=== PATIENT | female | born 1970 | race Caucasian/White ===

== ENCOUNTER 2016-04-14 09:14 | Day surgery (SDC) | payer OTHER ==
[~2016-04-14] VITALS: Ht 167.6 cm; Wt 152.4 kg
[2016-04-14] VITALS (9 sets, daily range): BP systolic 138–145; BP diastolic 69–86; PULSE 70–76; RESP 16–24; O2SAT 94–99
[~2016-04-14 09:14] MED LIST: ALBU8.5H2 INHALATION; HYDR-4003 PO; HYDR25TA4 PO; LISI-567 PO; MOME13HF IH
[2016-04-14] MEDS ORDERED: Ketamine 10 mg/mL 20 mL Inj ONE (09:15)
--- NOTE | 2016-04-14 09:22 | PCM.HPANE ---
Patient Data Surgeon Admitting Provider: Attending Provider:Champ Law MD Primary Care Physician:Fariba Duncan MD Other Provider:[facility] Reason for Visit Right Carpal Tunnel Syndrome Ht/WT & BMI Height (Feet): 5 Height (Inches): 2 Weight (Kilograms): 152.47 Body Mass Index 61.00 Allergies Coded Allergies: aspirin (Verified Allergy, Unknown, 04/12/16) latex (Verified Allergy, Unknown, 04/12/16) Past Anesthesia History Anesthesia History: Denies:: Abnormal Airway, Difficult Intubation Diabetes History Hx Diabetes?: No Medications Hypertension Medication: Yes Home Meds Incl Beta Richard: No Reported Medications Albuterol HFA (Proair HFA)8.5 Gm Hfa.aer.ad2 Puffs INHALATION Q4H PRN For Shortness of Breath #1 INHALER 04/12/16 Hydrocodone-Acetaminophen 5-325 mg 1 Each Tablet1 Tablet PO Q6H PRN For Pain Ref 0 04/12/16 Lisinopril 20 Mg [id number] Mg PO DAILY 30 Days Ref 0 04/12/16 Hydrochlorothiazide 25 Mg [id number] Mg PO DAILY 30 Days Ref 0 04/12/16 Mometasone/Formoterol (Dulera 200 Mcg/5 Mcg Inhaler)13 Gm Hfa.aer.ad13 Gm IH BID 04/12/16 History History of ENT Problems?: No HEENT History: Denies:: Abnormal Airway Difficult Intubation Hx of Heart Problems?: Yes Cardiovascular History: Positive for:: Hypertension Denies:: AICD Heart Murmur Irregular Heartbeat Pacemaker Hx of Respiratory Problem?: Yes Respiratory History: Positive for:: Asthma Use of C-PAP Machine Use of Inhalers / NEBS Denies:: COPD Oxygen Administration Pneumonia Tuberculosis Neurological History: Denies:: Alzheimer's Disease CVA Multiple Sclerosis Parkinson's Disease Seizures Hx of GI Problems?: No Hx of Problems?: No Female Hx: Denies:: Currently Problems with Breasts? Skin History: Denies:: History Skin Disorders? Pressure Ulcers Hx Musculoskeletal Problems?: Yes Musculoskeletal History: Positive for:: Musculoskeletal Trauma (right carpal tunnel release) Denies:: Fibromyalgia Osteoarthritis Hx of Psycho/Social Problems?: No Psycho Social History: Denies:: Anxiety Hx Depression Hx Surgeries?: No (unknown) Other History: Denies:: Cancer Thyroid Disease History Blood Transfusions: Positive for:: Accept Blood Products? Denies:: Blood Transfusions Hx Diabetes: No Stop/Bang S-Snoring: Do You Snore Loudly: Yes T-Tired: feel tired, fatigued: Yes O-Obsered: Observed not breath: Yes P-Blood Pressure: treated: Yes B- Body Mass Index > 35 kg/m2: Yes A- Age over 50: Yes N- Neck Large Circumference: Yes G- Gender Male: No MARLYS Total Score: 7 MARLYS Risk Assessment: High Risk, =/>3 Yes MARLYS Category 4 OutPt Procedure: Yes Risk Assessment Category Category 1A: Patient has history of documented sleep apnea, and HAS NOT received any narcotic, sedative or anesthesia administration during this stay. Category 1B: Patient has history of documented sleep apnea, and HAS received any narcotic , sedative or anesthesia administration during this stay Category 2: Patient has SUSPECTED Obstructive Sleep Apnea, and HAS received any narcotic , sedative or anesthesia administration during this stay. Category 3: Patient has SUSPECTED Obstructive Sleep Apnea and HAS NOT received narcotic, sedative or anesthesia administration during this stay. Category 4: Outpatient in Procedural Areas with known sleep apnea or who screen positive for High Risk via the STOP/BANG questionnaire. Exam Exam General Appearance: Alert, Oriented X3, Cooperative, No Acute Distress HEENT/AIRWAY: MP 2 Lungs: Clear to Auscultation, Normal Air Movement Heart: Exam Unremarkable, Regular Rate/Rhythm, No Murmurs/Rubs/Gallops Plan Impression Patient chart reviewed, patient interviewed and anesthestic plan with risks, benefits, and alternatives discussed, and informed consent obtained. ASA Physical Status: ASA3 Severe Disease (BMI 61.5) Anesthetic Plan: MAC Bene/Risks/Altern/Consents: Yes HP Complete Prior to Induction: Yes Sheng Schneider MD Apr 14, 2016 09:22
[2016-04-14] MEDS: Lactated Ringer's 1,000 ML IV SCH ×2 (09:42→10:50)
[2016-04-14] MEDS ORDERED: Bupivacaine-MPF 0.25% 30 mL Inj INFILTRATE ONE (10:50)
[2016-04-14] MEDS ORDERED: Lactated Ringer's 1,000 ML IV SCH (11:11)
[2016-04-14] MEDS ORDERED: Lactated Ringer's 500 ML IV PRN (11:11)
[2016-04-14] MEDS ORDERED: EPHEDrine Sulfate 50 mg/mL Inj IVPUSH PRN (11:15)
[2016-04-14] MEDS ORDERED: HYDROmorphone 1 mg/mL Inj IVPUSH PRN (11:15)
[2016-04-14] MEDS ORDERED: Dexamethasone 4 mg/mL Inj IVPUSH PRN (11:15)
[2016-04-14] MEDS ORDERED: fentaNYL-PF 50 mCg/mL 2 mL Inj IVPUSH PRN (11:15)
[2016-04-14] MEDS ORDERED: Phenylephrine 10,000 mCg/mL Inj IVPUSH PRN (11:15)
[2016-04-14] MEDS ORDERED: Ondansetron 2 mg/mL 2 mL Inj IVPUSH PRN (11:15)
[2016-04-14] MEDS ORDERED: MetoCLOpramide 5 mg/mL 2 mL Inj IVPUSH PRN (11:15)
[2016-04-14] MEDS ORDERED: HYDROcodone-APAP 5-325 mg Tablet PO PRN (11:20)
--- NOTE | 2016-04-15 08:57 | PCM.ANEP1 ---
Post Anesthesia Phase 1 PACU Phase 1 Assessment Anesthetic Administered: MAC Level of Alertness: Awake, talking FARIAS's with Equal Strength: Yes Pain: No Nausea or Vomiting: No Oxygen Delivery: Nasal Cannula Lungs: Clear to Auscultation, Normal Air Movement Dermatome Level: Full Sensation Sheng Schneider MD Apr 15, 2016 08:56
--- NOTE | 2016-04-15 08:57 | PCM.ANEP2 ---
Post Anesthesia Evaluation ASA/CMS Post Anesthesia VS in Patient's Normal Range?: Yes Resp Stable; Airway Patent?: Yes CV Function & Hydration Stable: Yes Mental Status Recovered?: Yes Pain control Satisfactory?: Yes N/V Control Satisfactory?: Yes Sheng Schneider MD Apr 15, 2016 08:57
--- NOTE | 2016-04-16 15:53 | OP ---
[address] [address] OPERATIVE REPORT PATIENT: RAUL MCINTOSH : 1970 MR#: [id number] ADMIT: 04/14/2016 JOB ID: [id number] DATE OF SURGERY: 04/14/2016 PREOPERATIVE DIAGNOSIS(ES): Right carpal tunnel syndrome. POSTOPERATIVE DIAGNOSIS(ES): Right carpal tunnel syndrome. PROCEDURE: Right open carpal tunnel release. SURGEON: Champ Law MD SAUSAGE STUFFER: None. ANESTHESIA: MAC with local. COMPLICATIONS: None apparent. SPECIMEN: None. INDICATIONS FOR PROCEDURE: This is a 46-year-old female patient with physical examination findings, history, and electrodiagnostic studies consistent with right carpal tunnel syndrome. At this point, a carpal tunnel release is indicated. PROCEDURES AND FINDINGS: The patient was identified in the preoperative area. Surgical site was marked. The patient was then taken back to the operating room and placed supine on the operating table. Appropriate time-outs were taken. MAC was induced smoothly. The patient was then prepped and draped in the usual sterile manner. Local anesthesia was then infiltrated to the surgical site consisting of 1% lidocaine and 0.25% Marcaine. The patient's right upper extremity was then exsanguinated and an arm tourniquet inflated to 250 mmHg. An open carpal tunnel incision was then made starting at the junction of the [place] cardinal line with the ring finger ray extending 2 cm proximally. This was done with a 15 blade. I then deepened the incision down to the underlying superficial palmar fascia with blunt and sharp dissection with a pair of tenotomy scissors. The superficial palmar fascia was split using a #15 blade. I then bluntly deepened the incision down to the underlying transverse carpal ligament with Ragnell retractors. The distal edge of the ligament was then opened in a layer by layer manner using a #15 blade until the carpal tunnel was entered. The proximal portion of the ligament was then isolated using the aeroplane pilot from the [place] set. Once this had been accomplished, the transverse carpal ligament was opened completely using the [place]. The roof of the tunnel was then palpated with a [place] elevator and was found to be widely open. The carpal tunnel was examined and the nerve was found to be intact. The distal residual fascial bands were then lysed bluntly with a pair of tenotomy scissors. Tourniquet was released. Hemostasis was obtained with electrocautery. The incision was then reapproximated using several 4-0 nylon horizontal mattress sutures. The patient tolerated the procedure well. Needle count, sponge count, and instrument counts were correct at the end of the procedure. The patient was placed into a small volar splint and transported to recovery in stable condition.
[2016-05-28] MEDS ORDERED: PHEN-499 PO (15:26)
[2016-05-28] MEDS ORDERED: HYDR-4003 PO (15:26)
== END 2016-04-14 23:59 | disposition home or self-care (01) ==
LOC: SAS 09:14
PROVIDERS: ATTEND Plastic Surgery
DX: G56.01 Carpal tunnel syndrome, right upper limb (principal); J45.909 Unspecified asthma, uncomplicated; I10 Essential (primary) hypertension; E66.9 Obesity, unspecified; Z68.44 Body mass index [BMI] 60.0-69.9, adult; Z79.51 Long term (current) use of inhaled steroids
CPT/HCPCS: 64721; J7120

== ENCOUNTER → 2016-06-02 | Day surgery (SDC) | payer OTHER ==
[~2016-06-02] VITALS: Ht 167.6 cm; Wt 152.3 kg
[~2016-06-02] MED LIST changes: +AMOX875T2 PO; +Atropine 0.4 mg/mL Inj IVPUSH PRN; +Dexamethasone 4 mg/mL Inj IVPUSH PRN; +EPHEDrine Sulfate 50 mg/mL Inj IVPUSH PRN; +HYDROmorphone 1 mg/mL Inj IVPUSH PRN; +Labetalol 5 mg/mL 4 mL Inj IV PRN; +Lactated Ringer's 1,000 ML IV ONE; +Lactated Ringer's 1,000 ML IV SCH; +Lactated Ringer's 500 ML IV PRN; +MetoCLOpramide 5 mg/mL 2 mL Inj IVPUSH PRN; +Ondansetron 2 mg/mL 2 mL Inj IVPUSH PRN; +PHEN-499 PO; +Phenylephrine 10,000 mCg/mL Inj IVPUSH PRN; +Propofol 10,000 mCg/mL 20 mL Inj ONE; +fentaNYL-PF 50 mCg/mL 2 mL Inj IVPUSH PRN; +hydrALAZINE 20 mg/mL Inj IVPUSH PRN
--- NOTE | 2016-06-02 07:34 | PCM.HPANE ---
Patient Data Surgeon Admitting Provider: Attending Provider:Champ Law MD Primary Care Physician:Fariba Duncan MD Other Provider: Reason for Visit Left Carpal Tunnel Syndrome Ht/WT & BMI Height (Feet): 5 Height (Inches): 2 Weight (Kilograms): 151.953 Body Mass Index 61.00 Allergies Coded Allergies: aspirin (Verified Allergy, Severe, RASH, 05/28/16) latex (Verified Allergy, Unknown, UNKNOWN, 05/28/16) Past Anesthesia History Anesthesia History: Denies:: Abnormal Airway, Anesthesia Reactions, Difficult Intubation, Malignant Hyperthermia Diabetes History Hx Diabetes?: No MRSA MRSA: No Medications Hypertension Medication: Yes (HCTZ,LISINOPRIL) Reported Medications Hydrocodone-Acetaminophen 5-325 mg 1 Each Tablet1 Tablet PO Q6H PRN For Pain Ref 0 05/28/16 Phentermine 30 Mg [id number] Mg PO DAILY 05/28/16 Albuterol HFA (Proair HFA)8.5 Gm Hfa.aer.ad2 Puffs INHALATION Q4H PRN For Shortness of Breath #1 INHALER 04/12/16 Lisinopril 20 Mg [id number] Mg PO DAILY 30 Days Ref 0 04/12/16 Hydrochlorothiazide 25 Mg [id number] Mg PO DAILY 30 Days Ref 0 04/12/16 Mometasone/Formoterol (Dulera 200 Mcg/5 Mcg Inhaler)13 Gm Hfa.aer.ad13 Gm IH BID 04/12/16 History History of ENT Problems?: No HEENT History: Denies:: Abnormal Airway Difficult Intubation Hx of Heart Problems?: Yes Cardiovascular History: Positive for:: Hypertension Denies:: AICD Heart Murmur Irregular Heartbeat Pacemaker Hx of Respiratory Problem?: Yes Respiratory History: Positive for:: Asthma Dyspnea (CONTRERAS) Use of C-PAP Machine (MARLYS+ W/ CPAP) Use of Inhalers / NEBS Denies:: COPD Oxygen Administration Pneumonia Tuberculosis Hx Neurologic Problems?: No Neurological History: Denies:: Alzheimer's Disease CVA Multiple Sclerosis Parkinson's Disease Seizures Hx of GI Problems?: No Hx of Problems?: No Female Hx: Denies:: Currently Problems with Breasts? Skin History: Denies:: History Skin Disorders? Pressure Ulcers Hx Musculoskeletal Problems?: Yes Musculoskeletal History: Positive for:: Musculoskeletal Trauma (right carpal tunnel release) Hx of Psycho/Social Problems?: No Psycho Social History: Denies:: Anxiety Hx Depression Hx Surgeries?: Yes (RT CTR) Hx Any Other Health Problems?: Yes Other History: Denies:: Cancer Endocrine Disease Hospitalization Thyroid Disease History Blood Transfusions: Denies:: Blood Transfusions Hx Diabetes: No Smoking Status: Unknown if Ever Smoker Stop/Bang S-Snoring: Do You Snore Loudly: Yes T-Tired: feel tired, fatigued: Yes O-Obsered: Observed not breath: Yes P-Blood Pressure: treated: Yes B- Body Mass Index > 35 kg/m2: Yes A- Age over 50: No N- Neck Large Circumference: Yes G- Gender Male: No MARLYS Total Score: 6 MARLYS Risk Assessment: High Risk, =/>3 Yes MARLYS Category 4 OutPt Procedure: Yes Risk Assessment Category Category 1A: Patient has history of documented sleep apnea, and HAS NOT received any narcotic, sedative or anesthesia administration during this stay. Category 1B: Patient has history of documented sleep apnea, and HAS received any narcotic , sedative or anesthesia administration during this stay Category 2: Patient has SUSPECTED Obstructive Sleep Apnea, and HAS received any narcotic , sedative or anesthesia administration during this stay. Category 3: Patient has SUSPECTED Obstructive Sleep Apnea and HAS NOT received narcotic, sedative or anesthesia administration during this stay. Category 4: Outpatient in Procedural Areas with known sleep apnea or who screen positive for High Risk via the STOP/BANG questionnaire. Exam Exam General Appearance: Alert, Oriented X3, Cooperative, No Acute Distress HEENT/AIRWAY: MP 2 Lungs: Clear to Auscultation, Normal Air Movement Heart: Exam Unremarkable, Regular Rate/Rhythm, No Murmurs/Rubs/Gallops Plan Impression Patient chart reviewed, patient interviewed and anesthestic plan with risks, benefits, and alternatives discussed, and informed consent obtained. NPO Status: 04/13/16 ASA Physical Status: ASA2 Mod Systemic Disease Anesthetic Plan: MAC Bene/Risks/Altern/Consents: Yes HP Complete Prior to Induction: Yes Mele Galvez MD Jun 02, 2016 07:34
[2016-06-02 08:17] VITALS: BP 132/72; PULSE 68; RESP 16; O2SAT 96
[2016-06-02 10:45] VITALS: BP 142/70; PULSE 69; RESP 16; O2SAT 97
--- NOTE | 2016-06-02 10:55 | PCM.ANEP1 ---
Post Anesthesia Phase 1 PACU Phase 1 Assessment Vital Signs Vital Signs Date Time Temp Pulse Resp B/P Pulse Ox O2 Delivery O2 Flow Rate FiO2 06/02/16 10:45 36.2 69 16 142/70 97 Room Air 06/02/16 08:17 36.4 68 16 132/72 96 Room Air Level of Alertness: Awake, talking FARIAS's with Equal Strength: Yes Pain: No Nausea or Vomiting: No Oxygen Delivery: Simple Mask Lungs: Clear to Auscultation, Normal Air Movement Mele Galvez MD Jun 02, 2016 10:55
--- NOTE | 2016-06-02 13:26 | PCM.ANEP2 ---
Post Anesthesia Evaluation ASA/CMS Post Anesthesia VS in Patient's Normal Range?: Yes Resp Stable; Airway Patent?: Yes CV Function & Hydration Stable: Yes Mental Status Recovered?: Yes Pain control Satisfactory?: Yes N/V Control Satisfactory?: Yes Mele Galvez MD Jun 02, 2016 13:26
--- NOTE | 2016-06-04 13:05 | OP ---
[address] [address] OPERATIVE REPORT PATIENT: RAUL MCINTOSH : 1970 MR#: [id number] ADMIT: 06/02/2016 JOB ID: [id number] DATE OF SURGERY: 06/02/2016 PREOPERATIVE DIAGNOSIS(ES): Left carpal tunnel syndrome. POSTOPERATIVE DIAGNOSIS(ES): Left carpal tunnel syndrome. PROCEDURE: Left open carpal tunnel release. SURGEON: Champ Law MD. HAT LACER: None. ANESTHESIA: MAC with local. COMPLICATIONS: None apparent. SPECIMEN: None. INDICATIONS FOR PROCEDURE: This is a 46-year-old female patient with bilateral carpal tunnel syndrome diagnosed by electrodiagnostic studies, history and physical examination findings. Patient has had a successful right carpal tunnel release in April. Patient presents today for a left-sided release. PROCEDURE AND FINDINGS: The patient was identified in the preoperative area. Surgical site was marked. The patient was then taken back to the operating room and placed supine on the operating table. Appropriate time-outs were taken. MAC was induced smoothly. The patient was then prepped and draped in the usual sterile manner. Local anesthesia was infiltrated to the surgical site consisting of 1% lidocaine and 0.25% Marcaine. The left upper extremity was then exsanguinated and tourniquet inflated to 250 mmHg. An open carpal tunnel incision was then made starting at the junction of the [place] cardinal line with the ring finger ray extending approximately 2 cm proximally. This was done with a 15 blade. I then performed blunt and sharp dissection with a pair of tenotomy scissors until I reached the superficial palmar fascia, which was split using a #15 blade. Blunt dissection was then carried out with Ragnell retractors until I encountered the transverse carpal ligament. The distal edge of the ligament was lysed with a #15 blade in a layer by layer manner until the carpal tunnel was entered. Proximally, the ligament was isolated using the barge pilot from the [place] set. Once this had been done, it was split using the [place]. The carpal tunnel was palpated and the roof was found to be widely open. The nerve was examined and it was found to be intact. The digital fascial connections distal to the transverse carpal ligament were lysed bluntly and sharply with a pair of tenotomy scissors. The tourniquet was released and hemostasis was obtained with electrocautery. The incision was then reapproximated using several 4-0 nylon horizontal mattress sutures. The patient tolerated the procedure well. Needle count, sponge count, instrument counts were correct at the end of the procedure. The patient was then placed into a small volar splint and transported to recovery in stable condition.
== END | disposition home or self-care (01) ==
LOC: SAS 07:41
PROVIDERS: ATTEND Plastic Surgery
DX: G56.02 Carpal tunnel syndrome, left upper limb (principal); I10 Essential (primary) hypertension; J45.909 Unspecified asthma, uncomplicated; G47.33 Obstructive sleep apnea (adult) (pediatric); Z79.51 Long term (current) use of inhaled steroids
CPT/HCPCS: 64721; J7120

== ENCOUNTER 2016-06-27 06:55 | Emergency (ER) | payer OTHER ==
[~2016-06-27] VITALS: Ht 167.6 cm; Wt 152.3 kg
[~2016-06-27 06:55] MED LIST changes: -AMOX875T2 PO; -Atropine 0.4 mg/mL Inj IVPUSH PRN; -Dexamethasone 4 mg/mL Inj IVPUSH PRN; -EPHEDrine Sulfate 50 mg/mL Inj IVPUSH PRN; -HYDROmorphone 1 mg/mL Inj IVPUSH PRN; -Labetalol 5 mg/mL 4 mL Inj IV PRN; -Lactated Ringer's 1,000 ML IV ONE; -Lactated Ringer's 1,000 ML IV SCH; -Lactated Ringer's 500 ML IV PRN; -MetoCLOpramide 5 mg/mL 2 mL Inj IVPUSH PRN; -Ondansetron 2 mg/mL 2 mL Inj IVPUSH PRN; -Phenylephrine 10,000 mCg/mL Inj IVPUSH PRN; -Propofol 10,000 mCg/mL 20 mL Inj ONE; -fentaNYL-PF 50 mCg/mL 2 mL Inj IVPUSH PRN; -hydrALAZINE 20 mg/mL Inj IVPUSH PRN
[2016-06-27 06:57] VITALS: BP 157/99; RESP 17; O2SAT 97
--- NOTE | 2016-06-27 07:03 | ED.REPORT ---
HPI-Facial Injury Date of Service Jun 27, 2016 ED Provider: Jono Jimenez DO Pt is a 46 y.o. female with a hx of asthma and HTN who presents to the ED c/o sore throat onset 3 days ago. Pt reports associated cough, congestion, increased SOB, and decreased PO intake. She denies fever. She states that she has only been able to eat small amounts of soft food, such as mashed potatoes, due to throat pain. She also states that she had contact with a co-worker who had strep throat. Nursing Notes Stated Complaint: SOB/SORE THROAT Chief Complaint: ENT & Mouth Nursing Notes Reviewed: Yes Allergies: Coded Allergies: aspirin (Verified Allergy, Severe, RASH, 05/28/16) latex (Verified Allergy, Unknown, UNKNOWN, 05/28/16) Scheduled Amoxicillin (Amoxicillin) 875 Mg Tablet 875 MG PO BID Hydrochlorothiazide (Hydrochlorothiazide) 25 Mg Tablet 25 MG PO DAILY Lisinopril (Lisinopril) 20 Mg Tablet 20 MG PO DAILY Mometasone/Formoterol (Dulera 200 Mcg/5 Mcg Inhaler) 13 Gm Hfa.aer.ad 13 GM IH BID Phentermine (Phentermine) 30 Mg Capsule 30 MG PO DAILY Scheduled PRN Albuterol HFA (Proair HFA) 8.5 Gm Hfa.aer.ad 2 PUFFS INHALATION Q4H PRN PRN For Shortness of Breath Hydrocodone-Acetaminophen 5-325 mg (Hydrocodone-Acetaminophen 5-325 mg) 1 Each Tablet 1 TABLET PO Q6H PRN PRN For Pain General Time Seen by Provider: 07:02 Chief Complaint Other (Sore throat) Hx Obtained From: Patient Arrived By: Walk-in Onset Occurred: 3 days ago Symptom Duration: Since onset Progression Since Onset: Gradually worsening Quality: Painful Severity: Current: Moderate Severity: Maximum: Severe Similar Sx Previous: No Past Medical History Past Medical History Reports: Asthma, Hypertension Past Surgical History Reports: Carpal tunnel Smoking History Unknown if Ever Smoker Social History Other Social History: Ambulatory Status Independent Review of Systems Decreased PO intake Constitutional: Denies: Fever Ears / Nose / Throat: Reports: Nasal congestion, Sore throat, Throat pain Complete sys rev & neg: except as marked. Respiratory: Reports: Non-productive cough, Shortness of breath Physical Exam Initial Vital Signs Vital Signs (First) Date Time Temp Pulse Resp B/P Pulse Ox O2 Delivery O2 Flow Rate FiO2 06/27/16 06:57 36.3 77 17 157/99 97 Room Air Initial VS: Reviewed Abdomen / GI: No distention Extremities: Vascular intact, Neuro intact Skin: Warm, Dry, No cyanosis Psychiatric: Mood/affect normal, Behavior normal, Normal thought content Head / Eyes: Atraumatic, Normocephalic, PERRL ENT: Atraumatic, Airway patent, No peritonsillar abscess Pharynx / Tonsils / Uvula: Positive: Pharyngeal erythema, Tonsillar erythema L , Tonsillar erythema R, Tonsillar swelling L, Tonsillar swelling R, Uvula erythematous, Negative: Tonsillar exudate L, Tonsillar exudate R, Uvula enlarged Tonsils symmetrical, no evidence of abscess Neck: Atraumatic Soft Tissue Neck: Positive: Cervical adenopathy L... (Anterior, mild), Cervical adenopathy R... (Anterior, mild) Neurologic: Oriented X3, Speech NL General/Constitutional: Awake, Alert, Well appearing, Well developed, Well hydrated, Well nourished, Not toxic appearing Appearance / Presentation: Positive: Obese, morbidly Interpretation & Diagnostics Lab Results Interpretation Lab Results Interpretation: Rapid strep positive Re-Eval/Medical Decision Med Decision/Clinical Course Med Decision/Clinical Course: Strep pharyngitis without clinical signs or symptoms of deep space abscess or infection. Patient is discharged on amoxicillin. Return in follow-up precautions given. Source of Hx: Old records Re-Evaluation/Progress : Time of Eval: 07:19 Re-Evaluation/Progress Note: Pt rechecked. Discussed dx and plan for discharge, pt understands and agrees with plan. Counseled Regarding: Diagnosis, Lab results, When/why to return to ED Discharge & Departure Impression: Primary Impression: Streptococcal sore throat Disposition: Home Discharge Condition All VS Reviewed: Yes Condition: No Change Patient Instructions: Strep Throat (ED) Additional Instructions: Thank you for entrusting us with your care today. It appears that you have strep throat. I will prescribe you a day course of . Seek care if you develop a fever, difficulty breathing, difficulty swallowing, or any new or worsening symptoms. Referrals: Fariba Duncan MD (PCP) Scribe Attestation Portions of this note were transcribed by Indra Bird Dr. [place] personally performed the history, physical exam and medical decision-making; I reviewed and confirmed the accuracy of the information in the transcribed note. Signed by: Richard Jackson, 06/27/16 and 0735. copies to: Fariba Duncan MD, Timothy S DO Jun 27, 2016 07:03 INDRA MAY Jun 27, 2016 07:10
[2016-06-27] MEDS ORDERED: Dexamethasone 20 mg/2 mL Oral Solution PO ONE (07:10)
[2016-06-27] MEDS ORDERED: AMOX875T2 PO (07:48)
[2016-06-27 08:17] VITALS: BP 152/96; PULSE 74; RESP 17; O2SAT 97
== END 2016-06-27 07:48 | disposition home or self-care (01) ==
LOC: SED 06:55
DX: J02.0 Streptococcal pharyngitis (principal); J45.909 Unspecified asthma, uncomplicated; I10 Essential (primary) hypertension; Z79.82 Long term (current) use of aspirin